=== PATIENT | male | born 1930 | race Caucasian/White ===

== ENCOUNTER 2017-08-15 13:31 | Emergency (ER) | payer OTHER ==
[~2017-08-15] VITALS: Ht 167.6 cm; Wt 81.7 kg
[~2017-08-15 13:31] MED LIST: ADALAT CC60 MG; ASPIRIN EC81 M1 PO; ASPIRIN325 PO; CALCIUM 600 +1 EAC5; CRESTOR20 MG PO; GLUCOSAMINE CH1 EAC7; MULTIVITAMINS PO; NITROSTAT0.4 MG SUBLING; PLAVIX 75 MG TA75 MG PO; POTASSIUM; TOPROL XL100 MG PO; TOPROL XL50 MG PO; VITAMIN E400 UNIT PO
[2017-08-15] MEDS ORDERED: METFORMIN HCL500 MG PO (13:59)
[2017-08-15] MEDS ORDERED: NORVASC 5 MG TAB5 MG PO (13:59)
[2017-08-15] MEDS ORDERED: NAPROSYN500 MG PO (14:00)
[2017-08-15] MEDS ORDERED: OMEPRAZOLE40 MG PO (14:00)
[2017-08-15] MEDS ORDERED: MAGOX 400400 MG PO (14:00)
[2017-08-15] MEDS ORDERED: LEVOTHYROXINE50 MCG PO (14:01)
[2017-08-15 14:30] LABS: ABSOLUTE BASOPHILS 0.1 thou/uL (0.0-0.2); ABSOLUTE EOSINOPHILS 0.1 thou/uL (0.0-0.7); ABSOLUTE LYMPHOCYTES 1.8 thou/uL (0.8-5.3); ABSOLUTE MONOCYTES 1.2 thou/uL (0.0-1.2); ABSOLUTE NEUTROPHILS 8.1 thou/uL (1.6-8.1); BASOPHILS 0.8 %; EOSINOPHILS 1.1 %; HEMATOCRIT 41.4 % (42.0-52.0); HEMOGLOBIN 13.6 gm/dL (14.0-18.0); MCH 30.4 pg (26.0-34.0); MCHC 32.8 g/dL (28.0-37.0); MCV 92.6 fL (80.0-100.0); MONOCYTES 10.3 %; MPV 8.6 fl. (7.2-11.1); NUCLEATED RBCS 0 /100WBC; PLATELET COUNT* 244 thou/uL (150-400); POLYS 71.8 %; RBC 4.47 mil/uL (4.50-6.00); RDW-CV 13.5 % (10.5-14.5); WBC 11.3 thou/uL (4.0-11.0)
[2017-08-15 14:38] LABS: CALCIUM 8.5 mg/dL (8.5-10.1); CREATININE 1.3 mg/dL (0.6-1.3); POTASSIUM 3.9 mmol/L (3.5-5.1)
[2017-08-15 14:47] LABS: ALBUMIN 2.8 g/dL (3.4-5.0); TOTAL BILIRUBIN 0.9 mg/dL (<0.1-1.0); TOTAL PROTEIN 7.3 g/dL (6.4-8.2)
[2017-08-15] MEDS ORDERED: ZOFRAN4 MG PO (15:11)
[2017-08-15] MEDS ORDERED: BENTYL 20 MG TA20 M1 PO (15:11)
[2017-08-15 15:19] LABS: URINE BILIRUBIN NEGATIVE (Negative); URINE BLOOD TRACE (Negative); URINE CLARITY CLEAR; URINE COLOR STRAW; URINE GLUCOSE-RANDOM NEGATIVE (Negative); URINE KETONES NEGATIVE (Negative); URINE LEUKOCYTES-REFLEX NEGATIVE (Negative); URINE NITRITE-REFLEX NEGATIVE (Negative); URINE PROTEIN NEGATIVE (Negative); URINE SPECIFIC GRAVITY <= 1.005 (1.005-1.030); URINE UROBILINOGEN 0.2 E.U./dl (0.2-1.0)
[2017-08-15 15:27] VITALS: BP 135/105
== END 2017-08-15 15:28 | disposition home or self-care (01) ==
LOC: M.ERS 13:31
PROVIDERS: Nurse Practitioner Family
DX: R10.9 Unspecified abdominal pain (principal); R74.8 Abnormal levels of other serum enzymes; R11.2 Nausea with vomiting, unspecified; I10 Essential (primary) hypertension; E78.5 Hyperlipidemia, unspecified; Z87.442 Personal history of urinary calculi; Z85.46 Personal history of malignant neoplasm of prostate; Z88.8 Allergy status to other drugs, medicaments and biological substances

== ENCOUNTER 2017-08-16 05:05 | Inpatient (IN) | payer OTHER ==
[~2017-08-16] VITALS: Ht 167.6 cm; Wt 81.2 kg
[~2017-08-16 05:05] MED LIST changes: +BENTYL 20 MG TA20 M1 PO; +LEVOTHYROXINE50 MCG PO; +MAGOX 400400 MG PO; +METFORMIN HCL500 MG PO; +NAPROSYN500 MG PO; +NORVASC 5 MG TAB5 MG PO; +OMEPRAZOLE40 MG PO; +ZOFRAN4 MG PO
[2017-08-16 05:17] VITALS: BP 169/79
[2017-08-16 05:24] LABS: URINE BILIRUBIN NEGATIVE (Negative); URINE BLOOD TRACE (Negative); URINE CLARITY CLEAR; URINE COLOR YELLOW; URINE GLUCOSE-RANDOM NEGATIVE (Negative); URINE KETONES 1+ (Negative); URINE LEUKOCYTES-REFLEX NEGATIVE (Negative); URINE NITRITE-REFLEX NEGATIVE (Negative); URINE PROTEIN 1+ (Negative); URINE UROBILINOGEN 0.2 E.U./dl (0.2-1.0)
[2017-08-16 05:41] LABS: ABSOLUTE BASOPHILS 0.1 thou/uL (0.0-0.2); ABSOLUTE EOSINOPHILS 0.2 thou/uL (0.0-0.7); ABSOLUTE LYMPHOCYTES 1.7 thou/uL (0.8-5.3); ABSOLUTE MONOCYTES 1.3 thou/uL (0.0-1.2); ABSOLUTE NEUTROPHILS 8.6 thou/uL (1.6-8.1); BASOPHILS 0.7 %; EOSINOPHILS 1.3 %; HEMATOCRIT 40.5 % (42.0-52.0); HEMOGLOBIN 13.4 gm/dL (14.0-18.0); LYMPHOCYTES 14.1 %; MCH 30.3 pg (26.0-34.0); MCHC 33.1 g/dL (28.0-37.0); MCV 91.3 fL (80.0-100.0); MONOCYTES 10.9 %; MPV 8.8 fl. (7.2-11.1); NUCLEATED RBCS 0 /100WBC; PLATELET COUNT* 274 thou/uL (150-400); RBC 4.43 mil/uL (4.50-6.00); RDW-CV 13.4 % (10.5-14.5); WBC 11.8 thou/uL (4.0-11.0)
[2017-08-16 05:47] LABS: ANION GAP 11 mmol/L (7-16); BUN 22 mg/dL (7-18); CALCIUM 8.7 mg/dL (8.5-10.1); CHLORIDE 101 mmol/L (98-107); CO2 24 mmol/L (21-32); CREATININE 1.3 mg/dL (0.6-1.3); GLUCOSE 105 mg/dL (70-99); POTASSIUM 3.9 mmol/L (3.5-5.1); SODIUM 136 mmol/L (136-145)
[2017-08-16 05:52] LABS: ALBUMIN 2.8 g/dL (3.4-5.0); ALKALINE PHOSPHATASE 110 U/L (46-116); LIPASE 333 U/L (73-393); SGOT 47 U/L (15-37); SGPT 64 U/L (30-65); TOTAL BILIRUBIN 0.8 mg/dL (<0.1-1.0); TOTAL PROTEIN 7.3 g/dL (6.4-8.2); TROPONIN-I LEVEL <0.06 ng/mL (<0.06)
[2017-08-16 07:37] VITALS: BP 158/73
[2017-08-16 15:40] VITALS: BP 134/76
[2017-08-16 21:00] VITALS: BP 146/71
[2017-08-17 04:07] LABS: ABSOLUTE BASOPHILS 0.1 thou/uL (0.0-0.2); ABSOLUTE EOSINOPHILS 0.1 thou/uL (0.0-0.7); ABSOLUTE LYMPHOCYTES 1.8 thou/uL (0.8-5.3); ABSOLUTE MONOCYTES 0.8 thou/uL (0.0-1.2); ABSOLUTE NEUTROPHILS 5.1 thou/uL (1.6-8.1); BASOPHILS 0.6 %; EOSINOPHILS 1.6 %; HEMATOCRIT 37.8 % (42.0-52.0); HEMOGLOBIN 12.4 gm/dL (14.0-18.0); LYMPHOCYTES 23.2 %; MCH 30.1 pg (26.0-34.0); MCHC 32.9 g/dL (28.0-37.0); MCV 91.7 fL (80.0-100.0); MONOCYTES 10.5 %; MPV 8.8 fl. (7.2-11.1); NUCLEATED RBCS 0 /100WBC; PLATELET COUNT* 249 thou/uL (150-400); POLYS 64.1 %; RBC 4.12 mil/uL (4.50-6.00); RDW-CV 13.6 % (10.5-14.5); WBC 7.9 thou/uL (4.0-11.0)
[2017-08-17 04:09] LABS: CALCIUM 8.2 mg/dL (8.5-10.1); CREATININE 1.1 mg/dL (0.6-1.3); POTASSIUM 3.9 mmol/L (3.5-5.1)
[2017-08-17 07:50] VITALS: BP 164/68
[2017-08-17 16:00] VITALS: BP 162/54
[2017-08-17 21:45] VITALS: BP 156/73
[2017-08-18 03:41] LABS: ABSOLUTE EOSINOPHILS 0.2 thou/uL (0.0-0.7); ABSOLUTE MONOCYTES 0.7 thou/uL (0.0-1.2); ABSOLUTE NEUTROPHILS 4.8 thou/uL (1.6-8.1); BASOPHILS 0.6 %; HEMATOCRIT 36.7 % (42.0-52.0); HEMOGLOBIN 12.1 gm/dL (14.0-18.0); LYMPHOCYTES 25.9 %; MCH 30.1 pg (26.0-34.0); MCV 91.4 fL (80.0-100.0); MPV 8.6 fl. (7.2-11.1); NUCLEATED RBCS 0 /100WBC; PLATELET COUNT* 271 thou/uL (150-400); POLYS 62.5 %; RBC 4.01 mil/uL (4.50-6.00); RDW-CV 13.4 % (10.5-14.5); WBC 7.6 thou/uL (4.0-11.0)
[2017-08-18 04:01] LABS: ALBUMIN 2.4 g/dL (3.4-5.0); ALKALINE PHOSPHATASE 91 U/L (46-116); ANION GAP 10 mmol/L (7-16); BUN 19 mg/dL (7-18); CALCIUM 8.2 mg/dL (8.5-10.1); CHLORIDE 104 mmol/L (98-107); CHOLESTEROL 116 mg/dL (<200); CO2 24 mmol/L (21-32); CREATININE 1.2 mg/dL (0.6-1.3); GLUCOSE 100 mg/dL (70-99); HDL CHOLESTEROL 31 mg/dL (>40); LDL CHOLESTEROL 74 mg/dL (<100); LIPASE 252 U/L (73-393); POTASSIUM 3.8 mmol/L (3.5-5.1); SGOT 57 U/L (15-37); SGPT 76 U/L (30-65); SODIUM 138 mmol/L (136-145); TC:HDL 3.7 Ratio (Not establshd); TOTAL BILIRUBIN 0.6 mg/dL (<0.1-1.0); TOTAL PROTEIN 6.3 g/dL (6.4-8.2); TRIGLYCERIDE 58 mg/dL (<150); VLDL 12 mg/dL (<40)
[2017-08-18 04:09] LABS: SERUM ASSESSMENT CLEAR
[2017-08-18 08:38] VITALS: BP 140/67
[2017-08-18] MEDS ORDERED: MIRALAX17 GM PO (10:42)
[2017-08-18 11:00] VITALS: BP 140/67
[2017-08-18 11:52] VITALS: BP 140/67
--- NOTE | 2017-08-19 16:18 | CON ---
[address] [address] CONSULTATION Name: SHANIFANG Jesusita Room: [address] IN .R.#: [id number] Admission: 08/16/17 Attend Phys: Hao Miller MD Discharge: 08/18/17 Date of : 30 Report #: [id number] THIS REPORT FOR: //name// CC: Hao Rai DO REQUESTING PHYSICIAN: Dr. Hao Miller. PRIMARY CARE PHYSICIAN: Dr. Loki Rai. REASON FOR CONSULT: Abdominal pain and obstipation. HISTORY OF PRESENT ILLNESS: This is an 87-year-old male who initially presented to ER with abdominal pain after he had seen by his primary care physician. The patient was evaluated and discharged home. He reports that when he went home, he tried to eat something bland, i.e., potatoes and since he got worse, he came back to the ER and was admitted with diagnosis of acute pancreatitis. During his ER visit, he underwent CT scan of abdomen and pelvis, which showed evidence of pancreatic fat stranding. There was also mild elevation of lipase. The AST was mildly elevated, but ALT and bilirubin were within normal limit. The patient also has been complaining of excessive gas, bloating and constipation. The CT showed colonic ileus without any sign of obstruction. The patient reports that since admission, he has had couple of small bowel movements. He is also passing small amount of gas from below. His lipase since normalized and abdominal pain has improved. PAST MEDICAL HISTORY: Significant for history of dyslipidemia, diabetes, hypertension, bilateral cataract surgery, pacemaker placement in 2010. History of coronary artery disease status post NJ and stenting in 2010. History of prostate cancer, kidney stones, left shoulder surgery and CABG in 1997. ALLERGIES AND MEDICATIONS: Please refer to hospital [facility]. SOCIAL HISTORY: The patient lives at home. Denies tobacco or alcohol use. FAMILY HISTORY: Noncontributory. PHYSICAL EXAMINATION: VITAL SIGNS: Reveals blood pressure of 146/71, respirations 16, pulse 69, temperature 97.7. LUNGS: Clear. CARDIOVASCULAR: [place] [address] CONSULTATION Name: FANG MCLEOD Room: [address]#: [id number] Admission: 08/16/17 Attend Phys: Hao Miller MD Discharge: 08/18/17 Date of : 30 Report #: [id number] ABDOMEN: Soft, but mildly distended. LABORATORY DATA: Reveal sodium of 138, potassium 3.9, BUN is 17, creatinine 1.1, glucose 96, AST is 47, ALT 64, total bilirubin 0.8, alkaline phosphatase 110, albumin 2.8. CPK is 648 with CK-MB mass of 236. HDL is 40. PT is 15.7 with INR of 1.3. WBC is 7.9 with hemoglobin of 12.4 and platelet of 249. IMAGING: As discussed above. ASSESSMENT AND PLAN: The patient with mild pancreatitis and resolution of lipase since admission yesterday. We will advance diet as tolerated, but since he has colonic ileus and distention, I will place him on a motility agent and bowel regimen. We will repeat KUB in the morning and also follow up on his lipase. If the patient is better in both aspects, he may get discharged tomorrow. <ELECTRONICALLY SIGNED> By: Flaco Arroyo MD 08/19/17 1618 0854 [id number] Arroyo MD /nt
== END 2017-08-18 11:52 | disposition home or self-care (01) | DRG 388 ==
LOC: M.ERS 05:05 → M.ORTHSURG 07:25 → M.ERS 07:37 → M.ORTHSURG 08-18 11:52
PROVIDERS: Emergency Medicine; Internal Medicine Gastroenterology; ADMIT Internal Medicine
DX: K56.7 Ileus, unspecified (principal); K85.90 Acute pancreatitis without necrosis or infection, unspecified; R65.10 Systemic inflammatory response syndrome (SIRS) of non-infectious origin without acute organ dysfunction; E44.1 Mild protein-calorie malnutrition; I10 Essential (primary) hypertension; E78.5 Hyperlipidemia, unspecified; Z79.899 Other long term (current) drug therapy; Z88.8 Allergy status to other drugs, medicaments and biological substances; Z95.0 Presence of cardiac pacemaker; Z98.42 Cataract extraction status, left eye; Z98.41 Cataract extraction status, right eye; Z95.5 Presence of coronary angioplasty implant and graft; I25.2 Old myocardial infarction; Z87.442 Personal history of urinary calculi; Z95.1 Presence of aortocoronary bypass graft; Z80.42 Family history of malignant neoplasm of prostate

== ENCOUNTER 2018-07-27 18:26 | Inpatient (IN) | payer OTHER ==
[~2018-07-27] VITALS: Ht 167.6 cm; Wt 80.3 kg
--- NOTE | ~2018-07-27 | CON ---
[address] [address] CONSULTATION Name: FANG MCLEOD Room: [address] IN M.R.#: [id number] Admission: 07/27/18 Attend Phys: Mendoza Botello, Discharge: Date of : 30 Report #: [id number] THIS REPORT FOR: //name// CC: Loki Botello DATE OF SERVICE: 07/28/2018 CHIEF COMPLAINT: Chest pain. HISTORY OF PRESENT ILLNESS: This is an 88-year-old man who presented with resting chest pressure radiating into his left neck. He was given nitroglycerin in the Emergency Room and his symptoms had quieted down, then he had another episode this morning requiring another sublingual nitroglycerin in addition to IV heparin, which was initiated overnight. His neck pain has resolved. He is still having some residual chest pressure, and his presenting ECG did not show any ST elevation, but showed mild diffuse ST segment depression. PAST MEDICAL HISTORY: He has a history of coronary artery bypass graft surgery, seemingly 2 separate episodes both at [facility] with a total of 5 vessels bypassed. He has a permanent pacemaker. He has a history of prior PCI in 2010 here at this institution. Records are pending in this regard. EF 40-45%, inferior wall motion abnormality. His most recent PCI though was at [facility] in 2010 and those records are not available at this time. He has hypertension, hyperlipidemia. His bypass surgery was in 1997. HOME MEDICATIONS: Include Toprol-XL 100 mg daily, baby aspirin, amlodipine 5 mg daily, Synthroid 50 mcg daily, Crestor 20 mg daily, omeprazole, magnesium oxide. ALLERGIES: HE HAS ALLERGIES TO IMDUR. SOCIAL HISTORY: He is a nonsmoker. He does not drink. He is still very active. He lives with his daughter. He plays golf still. He reports no assistive devices for ambulation. REVIEW OF SYSTEMS: GENERAL: No musculoskeletal symptoms or falls. HEENT: No visual changes, no dysphagia. NEUROLOGIC: Denies chronic headache, visual changes, seizure activity, numbness, weakness or localizing symptoms in his extremities. GASTROINTESTINAL: No recent history of hematemesis or melena. CARDIOVASCULAR: Positive chest pain, positive dyspnea with exertion. No palpitations. HEMATOLOGIC: No anemia or bleeding disorders. RENAL: [place] [address] CONSULTATION Name: SHANIFANG Jesusita Room: [address]#: [id number] Admission: 07/27/18 Attend Phys: Mendoza Botello, Discharge: Date of : 30 Report #: [id number] PHYSICAL EXAMINATION: VITAL SIGNS: Blood pressure was 170/80, overnight though his pressures were normal in the 140s-180s, pulse is in the 70s occasionally. He has V-paced rhythm with A sensing. GENERAL: This is a pleasant male. He is hard of hearing, but otherwise, in no apparent distress. HEENT: Eyes, EOMs intact. No facial asymmetry. NECK: Supple. No jugular venous distention. CARDIOVASCULAR: Regular. I could not hear a murmur or S3. LUNGS: Clear to auscultation. ABDOMEN: Soft, nontender. EXTREMITIES: There is no peripheral edema. His electrocardiogram demonstrates a sinus rhythm with diffuse ST segment depression, Q-waves in the inferior leads with subtle ST segment elevation. This was present apparently on a previous study. LABORATORY DATA: His hemoglobin is 15.5, white blood cell count is 11.1, platelet count is 240,000. Sodium is 141, potassium 4.0, chloride is 103, CO2 is 26, BUN is 28, creatinine is 1.5. Troponin I is 0.20 and 0.15. NT-proBNP is 578. IMAGING STUDIES: Head CT of the brain showed no evidence of intracranial bleeding, minimal volume loss. Chest x-ray was unremarkable. IMPRESSION: 1. Unstable angina. There are ST segment depression abnormalities in addition to rest chest pressure compatible with his prior episodes of angina, so this is an unstable angina presentation in a patient with a history of prior surgical revascularization in the late 1980s and PCI in . Based on his clinical presentation and ECG abnormalities, we discussed proceeding with a diagnostic cardiac catheterization. The patient appears to have a fairly good functional capacity. He still functions fairly independently, so based on this, I recommended a heart catheterization, and we will proceed with this immediately. We will continue with IV heparin and aspirin antiplatelet therapy. 2. Coronary artery disease, status post coronary artery bypass graft. 3. Hypertension. We will resume his home therapy including his calcium channel leodan. 4. Permanent pacemaker device appears to be functioning normally. 5. Renal insufficiency. This appears to be mild acute on chronic. We will aggressively hydrate him prior to his procedure. By: 0926 [id number] Maldonado MD, FACC /nt
[~2018-07-27 18:26] MED LIST changes: +MIRALAX17 GM PO
[2018-07-27 18:31] VITALS: BP 190/106
[2018-07-27 18:52] LABS: ABSOLUTE BASOPHILS 0.1 thou/uL (0.0-0.2); ABSOLUTE EOSINOPHILS 0.1 thou/uL (0.0-0.7); ABSOLUTE MONOCYTES 1.1 thou/uL (0.0-1.2); ABSOLUTE NEUTROPHILS 7.8 thou/uL (1.6-8.1); BASOPHILS 0.6 %; EOSINOPHILS 0.9 %; HEMATOCRIT 47.2 % (42.0-52.0); HEMOGLOBIN 15.5 gm/dL (14.0-18.0); MCH 30.1 pg (26.0-34.0); MCHC 32.7 g/dL (28.0-37.0); MCV 91.9 fL (80.0-100.0); MONOCYTES 9.6 %; MPV 9.2 fl. (7.2-11.1); NUCLEATED RBCS 0 /100WBC; PLATELET COUNT* 240 thou/uL (150-400); POLYS 70.9 %; RBC 5.14 mil/uL (4.50-6.00); RDW-CV 14.3 % (10.5-14.5); WBC 11.1 thou/uL (4.0-11.0)
[2018-07-27 19:01] LABS: CALCIUM 9.3 mg/dL (8.5-10.1); CREATININE 1.5 mg/dL (0.6-1.3)
[2018-07-27 19:02] LABS: PROTIME 10.5 Seconds (9.20-11.50)
[2018-07-27 19:11] LABS: ALBUMIN 3.7 g/dL (3.4-5.0); TOTAL BILIRUBIN 0.6 mg/dL (<0.1-1.0); TOTAL PROTEIN 8.2 g/dL (6.4-8.2); TROPONIN-I LEVEL 0.15 ng/mL (<0.06)
[2018-07-27 21:00] VITALS: BP 156/74
[2018-07-27 21:30] VITALS: BP 179/87
[2018-07-28] VITALS (18 sets, daily range): BP systolic 102–172; BP diastolic 57–95
--- NOTE | 2018-07-28 06:58 | NUR ---
PT ARRIVED FROM ER TO ROOM 229. ASSESSMENT COMPLETED CHARTED. PAPERWORK SIGNED AND EXPLAINED. C/O STIFFNESS IN NECK BUT NO PAIN. PT ON HEPARIN DRIP PER FLOW SHEET. UP WITH SBA. ABLE TO MAKE NEEDS KNOWN. PT RESTING IN BED AT THIS TIME. WILL CONTINUE TO MONITOR.
--- NOTE | 2018-07-28 10:33 | EKG ---
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 [employer] Head: KF : 1930 Requested By: Cayla Kelley Order Number: [id number] Reading MD: Jimenez Maldonado Measurements Intervals [place] Rate: 90 P: 217 NJ: 162 QRS: 43 QRSD: 113 T: 86 QT: 370 QTc: 453 Interpretive Statements Sinus or ectopic atrial rhythm Inferior infarct, acute (RCA) Anteroseptal infarct, age indeterminate Probable RV involvement, suggest recording right precordial leads Baseline wander in lead(s) II,aVR,V4,V5,V6 Compared to ECG 09/09/2010 09:29:05 Ectopic atrial rhythm now present Myocardial infarct finding now present Ventricular-paced complex(es) or rhythm no longer present AV dual-paced complex(es) or rhythm no longer present Electronically Signed On 07-28-2018 10:33:29 CDT by Jimenez Maldonado [email or web address] <ELECTRONICALLY SIGNED> By: Jimenez Maldonado MD, [facility] 07/28/18 1033 0911 0911 Jimenez Maldonado MD, [facility] /EPI
[2018-07-28 10:35] LABS: ANION GAP 10 mmol/L (7-16); BUN 25 mg/dL (7-18); CALCIUM 8.7 mg/dL (8.5-10.1); CHLORIDE 108 mmol/L (98-107); CHOLESTEROL 128 mg/dL (<200); CO2 25 mmol/L (21-32); CREATININE 1.3 mg/dL (0.6-1.3); GLUCOSE 106 mg/dL (70-99); HDL CHOLESTEROL 49 mg/dL (>40); LDL CHOLESTEROL 68 mg/dL (<100); POTASSIUM 3.9 mmol/L (3.5-5.1); SERUM ASSESSMENT Clear; SODIUM 143 mmol/L (136-145); TC:HDL 2.6 Ratio (Not establshd); TRIGLYCERIDE 56 mg/dL (<150); VLDL 11 mg/dL (<40)
--- NOTE | 2018-07-28 12:48 | NUR ---
ADOPTION COORDINATOR SPOKE TO THE PATIENT TO DISCUSS HIS HOME SITUATION, DISCHARGE PLANNING, AND TO INFORM OF THE ROLE OF CM. PATIENT ALERT AND ORIENTED. PATIENT INFORMS THAT HE IS INDEPENDENT AND ACTIVE, AND THAT HE 'GOLFS DAILY' AND 'GOES DANCING 2 NIGHTS A WEEK'. PATIENT DRIVES. MURRAY OWNS 0 DME. PATIENT HAS NO HX OF HH OR SNF, AND PLANS TO RETURN HOME AT D/C. PATIENT RESIDES AT HOME WITH HIS DTR AND SHE IS SUPPORTIVE AND INVOLVED IN HIS POC. CM WILL REMAIN AVAILABLE TO ASSIST AND FOLLOW NEEDED.
--- NOTE | 2018-07-28 14:28 | EKG ---
[place] [address] ELECTROCARDIOGRAM REPORT Name: FANG MCLEOD Room: [address] ADM IN M.R.#: [id number] Admission: 07/27/18 Attend Phys: Mendoza Botello, Discharge: Date of : 30 Report #: [id number] THIS REPORT FOR: //name// [facility] ED Test Date: 2018-07-27 Test Time: 18:30:13 Pat Name: FANG MCLEOD Department: Room: [facility] Gender: M Cottrell Blower: : 1930 Requested By: Izzy Belcher Order Number: [id number] MD: Jimenez Maldonado Measurements Intervals [place] Rate: 84 P: 68 AL: 300 QRS: 15 QRSD: 93 T: 135 QT: 383 QTc: 453 Interpretive Statements Sinus rhythm Prolonged AL interval Nonspecific repol abnormality, diffuse leads Minimal ST elevation, inferior leads Compared to ECG 09/09/2010 09:29:05 First degree AV block now present Early repolarization now present ST (T wave) deviation now present Ventricular-paced complex(es) or rhythm no longer present AV dual-paced complex(es) or rhythm no longer present Electronically Signed On 07-28-2018 14:28:36 CDT by Jimenez Maldonado [email or web address] <ELECTRONICALLY SIGNED> By: Jimenez Maldonado MD, [facility] 07/28/18 1428 29 183 Jimenez Maldonado MD, [facility] /EPI
--- NOTE | 2018-07-28 14:30 | EKG ---
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1930 Requested By: Bello Parham Order Number: [id number] Reading MD: Jimenez Maldonado Measurements Intervals [place] Rate: 70 P: 76 DE: 365 QRS: 19 QRSD: 95 T: 133 QT: 427 QTc: 461 Interpretive Statements Sinus rhythm Prolonged DE interval Borderline repol abnormality, lateral leads Minimal ST elevation, inferior leads Compared to ECG 07/28/2018 09:11:10 First degree AV block now present ST (T wave) deviation now present Ectopic atrial rhythm no longer present Myocardial infarct finding no longer present Electronically Signed On 07-28-2018 14:30:14 CDT by Jimenez Maldonado [email or web address] <ELECTRONICALLY SIGNED> By: Jimenez Maldonado MD, FACC 07/28/18 1430 1151 1151 Jimenez Maldonado MD, FAC /EPI
--- NOTE | 2018-07-28 16:32 | 2DMMODE ---
[place] [address] 2 D/M-MODE ECHOCARDIOGRAM Name: FANG MCLEOD Room: 229-P [facility] IN [facility]#: [id number] Admission: 07/27/18 Attend Phys: Mendoza Crowley Discharge: Date of : 30 Date of Service: 07/28/18 1632 Report #: [id number] THIS REPORT FOR: //name// APPROVED REPORT Study performed: 07/28/2018 15:06:44 EXAM: Comprehensive 2D, Doppler, and color-flow Echocardiogram Patient Location: In-Patient Room #: 229 Status: routine BSA: 1.90 HR: 68 bpm BP: 120/67 mmHg Rhythm: NSR Other Information Study Quality: Good Indications Dyspnea CAD Chest Pain 2D Dimensions IVSd: 17.77 (7-11mm) LVOT Diam: 21.86 (18-24mm) LVDd: 42.54 mm PWd: 13.24 (7-11mm) Ascending Ao: 32.83 (22-36mm) LVDs: 32.92 (25-40mm) Aortic Root: 32.40 mm Volumes Left Atrial Volume (Systole) LA ESV Index: 27.50 mL/m2 Aortic Valve AoV Peak Cordell.: 1.04 m/s AO Peak Gr.: 4.32 mmHg LVOT Max P.57 mmHg AO Mean Gr.: 2.37 mmHg LVOT Mean P.82 mmHg LVOT Max V: 0.63 m/s AO V2 VTI: 18.06 cm LVOT Mean V: 0.42 m/s LAURO (VTI): 3.01 cm2 LVOT V1 VTI: 14.49 cm Mitral Valve E/A Ratio: 1.36 [place] [address] 2 D/M-MODE ECHOCARDIOGRAM Name: FANG MCLEOD Room: [address] IN M.R.#: [id number] Admission: 07/27/18 Attend Phys: Mendoza Crowley Discharge: Date of : 30 Date of Service: 07/28/18 1632 Report #: [id number] MV Decel. Time: 169.90 ms MV E Max Cordell.: 0.96 m/s MV PHT: 49.27 ms MVA (PHT): 4.47 cm2 TDI E/Lateral E': 12.00 E/Medial E': 19.20 Medial E' Cordell.: 0.05 m/s Lateral E' Cordell.: 0.08 m/s Pulmonary Valve PV Peak Cordell.: 0.69 m/s PV Peak Gr.: 1.90 mmHg Tricuspid Valve RAP Estimate: 5.00 mmHg TR Peak Gr.: 30.43 mmHg RVSP: 35.00 mmHg PA Pressure: 35.00 mmHg Left Ventricle The left ventricle is normal size. basal inferior ,lateral hypokinesis There is normal left ventricular wall thickness. Left ventricular systolic function is normal. The left ventricular ejection fraction is within the normal range. LVEF is 50%. The left ventricular diastolic function is normal. Right Ventricle The right ventricle is normal size. The right ventricular systolic function is normal. Pacemaker lead is present in the right ventricle. Atria The left atrium size is normal. The right atrium size is normal. Aortic Valve Mild aortic valve sclerosis. No aortic regurgitation is present. There is no aortic valvular stenosis. Mitral Valve There is mitral annular calcification. Trace mitral regurgitation. No evidence of mitral valve stenosis. Tricuspid Valve The tricuspid valve is normal in structure. Mild tricuspid regurgitation. Mild pulmonary hypertension[place] [address] 2 D/M-MODE ECHOCARDIOGRAM Name: FANG MCLEOD Room: [address] IN [facility]#: [id number] Admission: 07/27/18 Attend Phys: Mendoza Crowley Discharge: Date of : 30 Date of Service: 07/28/18 1632 Report #: [id number] The pulmonary valve is normal in structure. Trace pulmonic regurgitation. Great Vessels The aortic root is normal in size. IVC is normal in size and collapses >50% with inspiration. Pericardium There is no pericardial effusion. <Conclusion> LVEF is 50%. basal inferior ,lateral hypokinesis Mild aortic valve sclerosis. There is no aortic valvular stenosis. No aortic regurgitation is present. Mild tricuspid regurgitation. Mild pulmonary hypertension. <ELECTRONICALLY SIGNED> By: Jimenez Maldonado MD, FACC 07/28/18 163 31 31 Jimenez Maldonado MD, FACC /INF
[2018-07-29] VITALS (7 sets, daily range): BP systolic 105–166; BP diastolic 59–82
[2018-07-29 05:07] LABS: HEMATOCRIT 37.2 % (42.0-52.0); MCH 30.7 pg (26.0-34.0); MCHC 33.7 g/dL (28.0-37.0); MCV 91.2 fL (80.0-100.0); MPV 9.2 fl. (7.2-11.1); RBC 4.08 mil/uL (4.50-6.00); RDW-CV 13.9 % (10.5-14.5); WBC 8.1 thou/uL (4.0-11.0)
[2018-07-29 05:13] LABS: HEMOGLOBIN 12.5 gm/dL (14.0-18.0)
[2018-07-29 05:17] LABS: CALCIUM 8.7 mg/dL (8.5-10.1); CREATININE 1.2 mg/dL (0.6-1.3)
[2018-07-29 05:20] LABS: TROPONIN-I LEVEL 10.66 ng/mL (<0.06)
--- NOTE | 2018-07-29 11:31 | EKG ---
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: : 1930 Requested By: Bello Parham Order Number: [id number] Hugo MD: Bello Parham Measurements Intervals [place] Rate: 71 P: 45 CT: 297 QRS: 10 QRSD: 105 T: 264 QT: 445 QTc: 484 Interpretive Statements Sinus rhythm Prolonged CT interval Borderline repolarization abnormality Borderline prolonged QT interval Compared to ECG 07/28/2018 11:51:58 no change Electronically Signed On 07-29-2018 11:31:19 CDT by Bello Parham [email or web address] <ELECTRONICALLY SIGNED> By: Bello Parham MD, [facility] 07/29/18 1131 3 Bello Parham MD, [facility] /EPI
--- NOTE | 2018-07-29 17:45 | NUR ---
VSS, ASSUMED CARE IN THE AM, ASSESSMENT PERFORMED AND CHARTED, FALL PRECAUTIONS IN PLACE AND CALL LIGHT IN REACH, PT IS A&O4 ON RA AND IS TRACING SR WITH 1 AV BLK ON THE MONITOR, DENIES ANY PAIN, HIS GOAL IS TO WALK IN ROOM AND WALK THE STAIRS AND MEEET WITH CARDIO REHAB NURSE, PT AT THIS TIME REAMINS WITH NO STATUS CHANGE, WILL FOLLOW WITH PLAN OF CARE AND HOURLY ROUNDS, UNTIL COMPLETE
[2018-07-30] VITALS: BP 159/77
[2018-07-30 04:00] VITALS: BP 147/91
[2018-07-30] MEDS ORDERED: MIRALAX17 GM PO (06:46)
--- NOTE | 2018-07-30 08:04 | NUR ---
ASSUMED PT CARE AT 1930. ASSESSMENT COMPLETED CHARTED. ABLE TO MAKE NEEDS KNOWN. UP AD JUAN J. NO C/O PAIN OR DISCOMFORT. PT RESTING IN BED AT THIS TIME. EXCITED TO GO HOME TODAY. WILL CONTINUE TO MONITOR.
[2018-07-30 08:30] VITALS: BP 152/84
--- NOTE | 2018-07-30 10:30 | CARD ---
[address] [address] CARDIAC CATH REPORT Name: FANG MCLEOD Room: 229[facility] IN ..#: [id number] Admission: 07/27/18 Attend Phys: Mendoza Botello, Discharge: Date of : 30 Report #: [id number] THIS REPORT FOR: //name// APPROVED REPORT Study performed: 07/28/2018 09:18:56 Patient Details Patient Status: In-Patient Room #: 229 Event Personnel Jovana Preston Anthony Langston(monitor), Neil Chan(Scrub), Bello Parham(bedspread cutter hand Procedures Performed cath pci Indication Abnormal ECG, Chest pain Risk Factors Arterial Hypertension, Hypercholesterolemia, Coronary Artery Disease Previous Procedures/Diagnoses Previous CABGPrevious PCI Admission/Lab Medications/Medications given during procedure Glycoprotein IllbIlla Inhibitors, Heparin Unfract. Procedure Narrative The patient was brought urgently to the Cardiac Catheterization Laboratory and was prepped and draped in a sterile manner. The right femoral was infiltrated with 1% Lidocaine subcutaneous anesthesia. A 6 sheath was inserted into the right femoral artery. Coronary angiography was performed using coronary diagnostic catheters. The right coronary system was accessed and visualized with a Diagnostic JR4 catheter. The left coronary system was accessed and visualized with a Diagnostic JL4 catheter. Left ventricular/Aortic Valve gradient assessed via catheter pullback. Closure device was deployed with a 6 Fr Angioseal. The patient tolerated the procedure well and there were no complications associated with the procedure. There was no hematoma. [address] [address] CARDIAC CATH REPORT Name: FANG MCLEOD Room: [address] IN [facility]#: [id number] Admission: 07/27/18 Attend Phys: Mendoza Botello, Discharge: Date of : 30 Report #: [id number] Intraoperative Conscious Sedation Sedation start time: 9:51 Case end Time: 10:37 Fentanyl 1.0 mcg Versed 50.0 mg Fluoro Time: 11.7 minutes Dose: DAP 04786 cGycm2 1260 mGy Contrast Type and Amount: 150 ml Visipaque Coronary Angiography The patient's coronary anatomy is co- dominant. [place] Artery Percent Stenosis Grafts (Complete if Previous CABG=Yes: Percent Stenosis) SVT to LCx mid body instent thrombosis 95%, sluggish flow BLANDON to lad, atretic Diagnostic Cath Left Main normal LAD proximal 60-65%, mid body 60%, very small and tortuous distally, moderate 50-60% stenosis apically, no competitive flow seen Diagonal 1 med . sized, normal Circumflex occluded sub totally mid body OM1 small, proximall 95% Right Coronary codominant, medium sized, mid body 50% R PDA small normal Left Ventriculography Left Ventriculography was not performed. Hemodynamics The aortic pressure is 113/56 mmHg with a mean of 82 mmHg. The left ventricular pressure is 118/7 mmHg with a mean of mmHg. The left ventricular end diastolic pressure is 7 mmHg. PCI Technique Lesion Anticoagulation was achieved with Heparin. bolus of iv aggrastat given Patient was preloaded with 3000 Units. Percutaneous coronary intervention was performed on the svg to the distal circumflex artery. The lesion stenosis prior to intervention was 100% with HERNANDO 0 flow. A 6 fr left svg Guide Catheter was used to engage the svg ostium. A whisper Interventional Guidewire was used to cross the lesion. BALLOON DILATION A Balloon catheter 2.5 x 8 mm was inserted and inflated up to 14atm [place] [address] CARDIAC CATH REPORT Name: FANG MCLEOD Room: [address]#: [id number] Admission: 07/27/18 Attend Phys: Mendoza Botello, Discharge: Date of : 30 Report #: [id number] for 13seconds. Repeat angiography revealed the following post-dilatation results: 80% stenosis. Additional Inflation: 18atm for 12seconds. Unable to cross the stenosis with a bmw wire STENT DEPLOYMENT A drug-eluting stent 22 mm x 3.5 mm was inserted and inflated up to 11atm for 17seconds. Repeat angiography revealed the following post-stent deployment results: 0% stenosis. Additional Inflation: 13atm for 16seconds. Additional Inflation: 14atm for 13seconds. Final angiography reveals 0 % stenosis with HERNANDO 3 flow. Conclusion 1. Atretic BLANDON graft noted with no significant flow into the lad 2. occluded distal circumflex artery 3. no significant stenosis in the rca 3. SVG to the distal circumflex appearred to have an old stent with recent occlusion 4. successful reperfustion of the svg to the circumflex and placement of a single new drug eluting stent Recommendations Cardiac Rehabilitation Referral Aggressive Medical Therapy Medications Administered Clopidogrel Diagnostic Cath Approved by: Jimenez Maldonado MD Date/Time: <ELECTRONICALLY SIGNED> By: Bello Parham MD, FACC 07/30/18 1029 1029 1029Davitrevor Parham MD, FACC /INF
[2018-07-30 11:30] VITALS: BP 142/83
[2018-07-30 12:45] VITALS: BP 109/59
[2018-07-30] MEDS ORDERED: PLAVIX 75 MG TA75 M1 PO (14:29)
[2018-07-30 14:49] VITALS: BP 109/59
--- NOTE | 2018-07-30 15:30 | NUR ---
ORDERS NOTED FOR HH. MET WITH PT, HE IS ACTIVE AND INDEPENDENT. DECLINED HH. WOULD NOT QUALIFY SINCE NOT HOMEBOUND
--- NOTE | 2018-07-31 10:17 | NUR ---
PT. DISCHARGED PRIOR TO OT EVALUATION.
== END 2018-07-30 15:53 | disposition home or self-care (01) | DRG 247 ==
LOC: M.ERS 18:26 → M.TBA-ER 20:09 → M.2W 20:09
PROVIDERS: Internal Medicine Cardiovascular Disease; Personal Emergency Response Attendant; ADMIT Family Medicine
PROC: 027034Z Dilation of Coronary Artery, One Artery with Drug-eluting Intraluminal Device, Percutaneous Approach (ICD-10-PCS; principal; 2018-07-28)
PROC: B218YZZ Fluoroscopy of Left Internal Mammary Bypass Graft using Other Contrast (ICD-10-PCS; principal; 2018-07-28)
PROC: 4A023N7 Measurement of Cardiac Sampling and Pressure, Left Heart, Percutaneous Approach (ICD-10-PCS; principal; 2018-07-28)
PROC: B211YZZ Fluoroscopy of Multiple Coronary Arteries using Other Contrast (ICD-10-PCS; principal; 2018-07-28)
PROC: B212YZZ Fluoroscopy of Single Coronary Artery Bypass Graft using Other Contrast (ICD-10-PCS; principal; 2018-07-28)
DX: I21.3 ST elevation (STEMI) myocardial infarction of unspecified site (principal); E78.5 Hyperlipidemia, unspecified; I25.110 Atherosclerotic heart disease of native coronary artery with unstable angina pectoris; N18.3 Chronic kidney disease, stage 3 (moderate); G89.29 Other chronic pain; M54.9 Dorsalgia, unspecified; E03.9 Hypothyroidism, unspecified; I12.9 Hypertensive chronic kidney disease with stage 1 through stage 4 chronic kidney disease, or unspecified chronic kidney disease; J44.9 Chronic obstructive pulmonary disease, unspecified; I25.2 Old myocardial infarction; Z95.5 Presence of coronary angioplasty implant and graft; Z95.0 Presence of cardiac pacemaker; Z98.42 Cataract extraction status, left eye; Z98.41 Cataract extraction status, right eye; Z95.1 Presence of aortocoronary bypass graft; Z85.46 Personal history of malignant neoplasm of prostate; Z87.442 Personal history of urinary calculi; Z88.8 Allergy status to other drugs, medicaments and biological substances; Z79.899 Other long term (current) drug therapy

== ENCOUNTER 2019-05-09 10:34 | Emergency (ER) | payer MEDICARE ==
[~2019-05-09] VITALS: Ht 170.2 cm; Wt 81.7 kg
[~2019-05-09 10:34] MED LIST changes: +PLAVIX 75 MG TA75 M1 PO
[2019-05-09] MEDS ORDERED: KEFLEX500 M1 PO ×2 (12:07)
[2019-05-09] MEDS ORDERED: BACTRIM DS TAB1 EACH PO ×2 (12:07)
[2019-05-09 12:20] VITALS: BP 138/72
== END 2019-05-09 12:21 | disposition home or self-care (01) ==
LOC: M.ERS 10:34
DX: L03.113 Cellulitis of right upper limb (principal); I10 Essential (primary) hypertension; E78.5 Hyperlipidemia, unspecified; I25.2 Old myocardial infarction; Z85.46 Personal history of malignant neoplasm of prostate; Z87.442 Personal history of urinary calculi; Z95.1 Presence of aortocoronary bypass graft; Z88.8 Allergy status to other drugs, medicaments and biological substances; Z79.82 Long term (current) use of aspirin; Z79.84 Long term (current) use of oral hypoglycemic drugs; Z79.899 Other long term (current) drug therapy

== ENCOUNTER 2019-10-01 07:47 | Emergency (ER) | payer MEDICARE ==
[~2019-10-01] VITALS: Ht 167.6 cm; Wt 81.7 kg
[~2019-10-01 07:47] MED LIST changes: +BACTRIM DS TAB1 EACH PO; +KEFLEX500 M1 PO
[2019-10-01 09:01] LABS: ABSOLUTE MONOCYTES 0.8 thou/uL (0.0-1.2); ABSOLUTE NEUTROPHILS 5.9 thou/uL (1.6-8.1); BASOPHILS 0.5 %; EOSINOPHILS 0.6 %; HEMATOCRIT 37.5 % (42.0-52.0); HEMOGLOBIN 12.7 gm/dL (14.0-18.0); LYMPHOCYTES 12.3 %; MCH 31.5 pg (26.0-34.0); MCHC 33.8 g/dL (28.0-37.0); MCV 93.3 fL (80.0-100.0); MONOCYTES 9.8 %; MPV 8.4 fl. (7.2-11.1); NUCLEATED RBCS 0 /100WBC; PLATELET COUNT* 193 thou/uL (150-400); POLYS 76.8 %; RBC 4.02 mil/uL (4.50-6.00); RDW-CV 15.1 % (10.5-14.5); WBC 7.7 thou/uL (4.0-11.0)
[2019-10-01 09:16] LABS: CALCIUM 8.4 mg/dL (8.5-10.1); CREATININE 1.4 mg/dL (0.6-1.3); POTASSIUM 3.9 mmol/L (3.5-5.1)
[2019-10-01 09:26] LABS: ALBUMIN 3.6 g/dL (3.4-5.0); MAGNESIUM 1.5 mg/dL (1.8-2.4); TOTAL PROTEIN 7.1 g/dL (6.4-8.2)
[2019-10-01] MEDS ORDERED: NORCO 5-325 TA1 EAC2 PO (09:53)
[2019-10-01 10:22] VITALS: BP 149/74
--- NOTE | 2019-10-01 16:36 | EKG ---
[place] [address] ELECTROCARDIOGRAM REPORT Name: FANG MCLEOD Room: 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: : 1930 Requested By: Trae Gómez Order Number: [id number] MD: Bello Parham Measurements Intervals Jarratt Rate: 100 P: 211 PA: 168 QRS: 19 QRSD: 102 T: 240 QT: 380 QTc: 491 Interpretive Statements Second degree AV block, Mobitz II with sinus rhythm Nonspecific repol abnormality, diffuse leads Baseline wander in lead(s) II,III,aVF Compared to ECG 07/29/2018 09:14:31 Second-degree AV block, now present First degree AV block no longer present Electronically Signed On 10-01-2019 16:35:59 CDT by Bello Parham [email or web address] <ELECTRONICALLY SIGNED> By: Bello Parham MD, [facility] 10/01/19 1635 [id number] [id number] Bello Parham MD, [facility] /EPI
== END 2019-10-01 10:25 | disposition home or self-care (01) ==
LOC: M.ERS 07:47
PROVIDERS: Emergency Medicine Emergency Medical Services
DX: S46.812A Strain of other muscles, fascia and tendons at shoulder and upper arm level, left arm, initial encounter (principal); I10 Essential (primary) hypertension; E78.5 Hyperlipidemia, unspecified; Z95.5 Presence of coronary angioplasty implant and graft; Z95.0 Presence of cardiac pacemaker; Z85.46 Personal history of malignant neoplasm of prostate; Z87.442 Personal history of urinary calculi; Z88.8 Allergy status to other drugs, medicaments and biological substances; X58.XXXA Exposure to other specified factors, initial encounter; Y93.89 Activity, other specified; Y92.89 Other specified places as the place of occurrence of the external cause; Y99.8 Other external cause status

== ENCOUNTER 2019-10-03 14:07 | Emergency (ER) | payer MEDICARE ==
[~2019-10-03] VITALS: Ht 167.6 cm; Wt 81.7 kg
[~2019-10-03 14:07] MED LIST changes: +NORCO 5-325 TA1 EAC2 PO
[2019-10-03 14:52] LABS: ABSOLUTE LYMPHOCYTES 1.3 thou/uL (0.8-5.3); ABSOLUTE MONOCYTES 1.1 thou/uL (0.0-1.2); ABSOLUTE NEUTROPHILS 6.6 thou/uL (1.6-8.1); BASOPHILS 0.4 %; EOSINOPHILS 0.4 %; HEMATOCRIT 39.6 % (42.0-52.0); HEMOGLOBIN 13.7 gm/dL (14.0-18.0); LYMPHOCYTES 14.3 %; MCH 32.3 pg (26.0-34.0); MCHC 34.6 g/dL (28.0-37.0); MCV 93.5 fL (80.0-100.0); MONOCYTES 11.9 %; NUCLEATED RBCS 0 /100WBC; PLATELET COUNT* 205 thou/uL (150-400); RBC 4.23 mil/uL (4.50-6.00); RDW-CV 15.1 % (10.5-14.5); WBC 9.1 thou/uL (4.0-11.0)
[2019-10-03 15:04] LABS: CREATININE 1.5 mg/dL (0.6-1.3); INR 1.4
[2019-10-03 15:15] LABS: ALBUMIN 3.9 g/dL (3.4-5.0); CALCIUM 8.6 mg/dL (8.5-10.1); TOTAL BILIRUBIN 1.1 mg/dL (<0.1-1.0); TOTAL PROTEIN 8.1 g/dL (6.4-8.2)
[2019-10-03 16:28] VITALS: BP 141/72
--- NOTE | 2019-10-04 10:43 | EKG ---
[place] [address] ELECTROCARDIOGRAM REPORT Name: SHANIFANG Jesusita Room: [facility]#: [id number] Admission: 10/03/19 Attend Phys: Discharge: 10/03/19 Date of : 30 Date of Service: 10/03/19 1436 Report #: [id number] THIS REPORT FOR: //name// [facility] ED Test Date: 2019-10-03 Test Time: 14:36:37 Pat Name: FANG MCLEOD Department: Room: Gender: Automatic Hemmer: BALDEV : 1930 Requested By: Corinne Gonzáles Order Number: [id number] MD: Bello Parham Measurements Intervals Freedom Rate: 101 P: 0 TN: 196 QRS: 14 QRSD: 97 T: 216 QT: 309 QTc: 401 Interpretive Statements Sinus tachycardia Abnormal T, consider ischemia, lateral leads Compared to ECG 10/01/2019 07:58 Sinus rhythm no longer present Second-degree AV block, Mobitz type I (Wenckebach) no longer present Electronically Signed On 10-04-2019 10:42:48 CDT by Bello Parham [email or web address] <ELECTRONICALLY SIGNED> By: Bello Parham MD, [facility] 10/04/19 1042 [id number] 1436 Bello Parham MD, [facility] /EPI
== END 2019-10-03 16:29 | disposition home or self-care (01) ==
LOC: M.ERS 14:07
PROVIDERS: Physician Assistant
DX: S41.111A Laceration without foreign body of right upper arm, initial encounter (principal); D64.9 Anemia, unspecified; I13.10 Hypertensive heart and chronic kidney disease without heart failure, with stage 1 through stage 4 chronic kidney disease, or unspecified chronic kidney disease; N18.9 Chronic kidney disease, unspecified; I50.9 Heart failure, unspecified; E78.5 Hyperlipidemia, unspecified; Z87.442 Personal history of urinary calculi; Z85.46 Personal history of malignant neoplasm of prostate; Z88.8 Allergy status to other drugs, medicaments and biological substances; W06.XXXA Fall from bed, initial encounter; Y93.89 Activity, other specified; Y92.89 Other specified places as the place of occurrence of the external cause; Y99.8 Other external cause status

== ENCOUNTER → 2019-10-18 | Outpatient (CLI) | payer MEDICARE ==
--- NOTE | 2019-10-18 16:11 | 2DMMODE ---
[place] [address] 2 D/M-MODE ECHOCARDIOGRAM Name: FANG MCLEOD Room: [facility]#: [id number] Admission: 10/18/19 Attend Phys: Brooke Moreau, Discharge: Date of : 30 Date of Service: 10/18/19 1610 Report #: [id number] THIS REPORT FOR: cc: Loki Rai John E. DO Holkins, John M. MD [facility] ~ APPROVED REPORT Study performed: 10/18/2019 10:03:28 EXAM: Comprehensive 2D, Doppler, and color-flow Echocardiogram Patient Location: Out-Patient BSA: 1.89 HR: 90 bpm BP: 120/67 mmHg Other Information Study Quality: Good Indications Congestive Heart Failure CAD 2D Dimensions IVSd: 17.43 (7-11mm) LVOT Diam: 20.65 (18-24mm) LVDd: 37.28 mm PWd: 8.59 (7-11mm) Ascending Ao: 30.71 (22-36mm) LVDs: 32.24 (25-40mm) Aortic Root: 34.49 mm Volumes Left Atrial Volume (Systole) LA ESV Index: 23.00 mL/m2 Aortic Valve AoV Peak Cordell.: 1.08 m/s AO Peak Gr.: 4.63 mmHg LVOT Max P.01 mmHg AO Mean Gr.: 3.16 mmHg LVOT Mean P.53 mmHg LVOT Max V: 0.50 m/s AO V2 VTI: 23.57 cm LVOT Mean V: 0.34 m/s LAURO (VTI): 1.54 cm2 LVOT V1 VTI: 10.80 [place] [address] 2 D/M-MODE ECHOCARDIOGRAM Name: FANG MCLEOD Room: [facility]#: [id number] Admission: 10/18/19 Attend Phys: Brooke Moreau, Discharge: Date of : 30 Date of Service: 10/18/19 1610 Report #: [id number] MV Decel. Time: 157.47 ms MV E Max Cordell.: 1.09 m/s MV PHT: 45.67 ms MVA (PHT): 4.82 cm2 TDI E/Lateral E': 12.11 E/Medial E': 13.63 Medial E' Cordell.: 0.08 m/s Lateral E' Cordell.: 0.09 m/s Pulmonary Valve PV Peak Cordell.: 0.72 m/s PV Peak Gr.: 2.10 mmHg Tricuspid Valve RAP Estimate: 5.00 mmHg TR Peak Gr.: 33.85 mmHg RVSP: 38.85 mmHg PA Pressure: 38.85 mmHg Left Ventricle The left ventricle is normal size. There is normal LV segmental wall motion. There is normal left ventricular wall thickness. Left ventricular systolic function is normal. The left ventricular ejection fraction is within the normal range. LVEF is 55-60%. This study is not technically sufficient to allow evaluation of the LV diastolic function due to atrial fibrillation. Right Ventricle The right ventricle is normal size. The right ventricular systolic function is normal. Pacemaker lead is present in the right ventricle. Atria The left atrium size is normal. The right atrium size is normal. Pacemaker lead is present in the right atrium. Aortic Valve Mild aortic valve sclerosis. Trace aortic regurgitation. There is no aortic valvular stenosis. Mitral Valve Mild mitral annular calcification. Mild mitral regurgitation. No evidence of mitral valve stenosis. Tricuspid Valve The tricuspid valve is normal in structure. Mild [place] [address] 2 D/M-MODE ECHOCARDIOGRAM Name: FANG MCLEOD Room: [facility]#: [id number] Admission: 10/18/19 Attend Phys: Brooke Moreau, Discharge: Date of : 30 Date of Service: 10/18/19 1610 Report #: [id number] Pulmonic Valve The pulmonary valve is normal in structure. Mild pulmonic regurgitation. Great Vessels The aortic root is normal in size. IVC is normal in size and collapses >50% with inspiration. Pericardium There is no pericardial effusion. <Conclusion> The left ventricle is normal size. Left ventricular systolic function is normal. The left ventricular ejection fraction is within the normal range. LVEF is 55-60%. This study is not technically sufficient to allow evaluation of the LV diastolic function due to atrial fibrillation. The right ventricle is normal size. The left atrium size is normal. Mild aortic valve sclerosis. Trace aortic regurgitation. There is no aortic valvular stenosis. Mild mitral annular calcification. Mild mitral regurgitation. No evidence of mitral valve stenosis. The tricuspid valve is normal in structure. Mild tricuspid regurgitation. IVC is normal in size and collapses >50% with inspiration. There is no pericardial effusion. There is normal LV segmental wall motion. <ELECTRONICALLY SIGNED> By: Loki Garland MD, FACC 10/18/191609 09 09 Loki Garland MD, FACC /INF
== END ==
LOC: M.CRD 10:00
PROVIDERS: ATTEND Nurse Practitioner Family
DX: I08.8 Other rheumatic multiple valve diseases (principal); I50.9 Heart failure, unspecified